=== PATIENT | female | born 1990 | race African-American/Black ===

== ENCOUNTER 2017-07-08 07:53 | Inpatient (IN) | payer OTHER ==
[2017-07-08] VITALS (7 sets, daily range): BP systolic 95–116; BP diastolic 51–59
[~2017-07-08] VITALS: Ht 157.5 cm; Wt 101.1 kg
[~2017-07-08 07:53] MED LIST: DORYX200 MG PO; ENDOCET 5-3251 EACH PO; FERROUS SULFAT325 MG PO; Feosol PO; IBUPROFEN800 MG PO; IRON325 M1 PO; MACROBID100 MG PO; Motrin PO; PNV PRENATAL P1 EACH PO; PRENATAL TABLE1 EAC3 PO; Percocet 5/325,Endoc PO
[2017-07-08 08:46] LABS: EOSINOPHIL (%) 0.7 % (0-5); HEMATOCRIT 33.9 % (36.0-46.0); IMMATURE GRANULOCYTE (%) 0.4 % (0.0-0.7); INSTRUMENT ABS NEUTROPHIL CT 2.7 K/uL; LYMPHOCYTE COUNT 2.3 K/uL (1.0-2.8); MCH 22.7 PG (29.0-34.0); MCV 73.4 FL (83-99); MEAN PLAT.VOLUME 12.6 uM^3 (9.5-12.4); MONOCYTE COUNT 0.4 K/uL (0-0.8); NEUTROPHIL (%) 49.1 % (45-76); NEUTROPHIL COUNT 2.7 K/uL (1.8-6.4); PLATELET COUNT 151 K/uL (156-360); RBC DIS.WIDTH-CV 14.2 % (11.8-14.6); RBC DIS.WIDTH-SD 37.1 % (39-53); RED BLOOD COUNT 4.62 M/uL (3.80-5.20); WHITE BLOOD COUNT 5.4 K/uL (4.1-10.2)
[2017-07-09 02:49] VITALS: BP 107/52
[2017-07-09 07:38] LABS: EOSINOPHIL COUNT 0.1 K/uL (0-0.3); HEMATOCRIT 30.2 % (36.0-46.0); IMMATURE GRANULOCYTE (%) 0.5 % (0.0-0.7); INSTRUMENT ABS NEUTROPHIL CT 4.3 K/uL; LYMPHOCYTE COUNT 1.6 K/uL (1.0-2.8); MCH 22.7 PG (29.0-34.0); MCHC 30.5 G/DL (30.0-36.0); MCV 74.6 FL (83-99); MONOCYTE (%) 6.6 % (3-12); MONOCYTE COUNT 0.4 K/uL (0-0.8); NEUTROPHIL (%) 65.5 % (45-76); NEUTROPHIL COUNT 4.3 K/uL (1.8-6.4); PLATELET COUNT 158 K/uL (156-360); RBC DIS.WIDTH-CV 14.1 % (11.8-14.6); RBC DIS.WIDTH-SD 37.6 % (39-53); RED BLOOD COUNT 4.05 M/uL (3.80-5.20); WHITE BLOOD COUNT 6.5 K/uL (4.1-10.2)
[2017-07-09 07:45] VITALS: BP 90/54
[2017-07-09 19:24] VITALS: BP 121/62
[2017-07-09 22:05] VITALS: BP 120/55
[2017-07-10 03:01] VITALS: BP 97/55
[2017-07-10 07:15] VITALS: BP 98/58
[2017-07-10] MEDS ORDERED: ENDOCET 5-3251 EACH PO (11:23)
[2017-07-10] MEDS ORDERED: DOCUSATE SODIU100 MG PO (11:23)
[2017-07-10] MEDS ORDERED: IRON325 M1 PO (11:23)
[2017-07-10] MEDS ORDERED: IBUPROFEN800 MG PO (11:23)
[2017-07-10] MEDS ORDERED: VITAMIN C500 M1 PO (11:24)
== END 2017-07-10 14:06 | disposition home or self-care (01) | DRG 765 ==
LOC: 2WEST 07:53 → 2SOUTH 10:35 → 2WEST 07-10 14:06
PROVIDERS: Obstetrics & Gynecology
DX: O34.211 Maternal care for low transverse scar from previous cesarean delivery (principal); L91.0 Hypertrophic scar; K66.0 Peritoneal adhesions (postprocedural) (postinfection); O99.02 Anemia complicating childbirth; O36.5930 Maternal care for other known or suspected poor fetal growth, third trimester, not applicable or unspecified; D62 Acute posthemorrhagic anemia; O99.214 Obesity complicating childbirth; E66.01 Morbid (severe) obesity due to excess calories; Z68.41 Body mass index [BMI] 40.0-44.9, adult; Z3A.38 38 weeks gestation of pregnancy; Z37.0 Single live birth; Z80.0 Family history of malignant neoplasm of digestive organs; Z80.49 Family history of malignant neoplasm of other genital organs; Z82.49 Family history of ischemic heart disease and other diseases of the circulatory system; Z87.440 Personal history of urinary (tract) infections
CPT/HCPCS: 85025; 86850; 86900; 86901; J0131; J1200; J1580; J1885; J2274; J2405; J2590; J3010; J7050; J7120